=== PATIENT | female | born 1995 | race Caucasian/White ===

== ENCOUNTER 2017-08-11 14:45 | Emergency (ER) | payer OTHER ==
[~2017-08-11] VITALS: Ht 152.4 cm; Wt 54.4 kg
[~2017-08-11 14:45] MED LIST: HUMALOG100 UNIT/1 SQ; HUMALOG100 UNIT/2 SUB-Q; LANTUS SOL100 UNIT/1 SQ; LEVOTHROID88 MCG PO; LEVOTHYROXINE100 MCG PO; MACROBID 100 M100 MG PO; NORCO 5-325 TA1 EACH PO; NOVOLOG FL100 UNIT/1; NOVOLOG FL100 UNIT/1 SQ
[2017-08-11] MEDS ORDERED: NOVOLOG FL100 UNIT/1 SUB-Q (15:08)
[2017-08-11] MEDS ORDERED: PROMETHAZINE HC25 M1 PO (19:00)
== END 2017-08-11 19:21 | disposition home or self-care (01) ==
LOC: ED 14:45
DX: E10.10 Type 1 diabetes mellitus with ketoacidosis without coma (principal); E03.9 Hypothyroidism, unspecified; Z87.442 Personal history of urinary calculi; Z88.8 Allergy status to other drugs, medicaments and biological substances; Z79.4 Long term (current) use of insulin; Z79.899 Other long term (current) drug therapy
CPT/HCPCS: 80053; 81001; 82010; 82800; 84703; 85025; 96361; 96372; 96374; 99283; J2550; J7030

== ENCOUNTER 2017-08-12 16:23 | Inpatient (IN) | payer OTHER ==
[~2017-08-12] VITALS: Ht 152.4 cm; Wt 55.6 kg
[~2017-08-12 16:23] MED LIST changes: +NOVOLOG FL100 UNIT/1 SUB-Q; +PROMETHAZINE HC25 M1 PO
[2017-08-13] MEDS ORDERED: LEVEMIR100 UNIT/1 SUB-Q (10:39)
== END 2017-08-13 11:30 | disposition home or self-care (01) | DRG 639 ==
LOC: ED 16:23 → CCU 19:55
PROVIDERS: ADMIT Internal Medicine
DX: E10.10 Type 1 diabetes mellitus with ketoacidosis without coma (principal); Z79.4 Long term (current) use of insulin; L51.9 Erythema multiforme, unspecified; E03.9 Hypothyroidism, unspecified
CPT/HCPCS: 36415; 80048; 80053; 81001; 82010; 82800; 83036; 84703; 85025; 86694; 86695; 86696; 94667; 96361; 96374; 96375; 99285; J1200; J1650; J2765; J7030

== ENCOUNTER 2017-09-26 16:48 | Emergency (ER) | payer OTHER ==
[~2017-09-26] VITALS: Ht 152.4 cm; Wt 55.6 kg
[~2017-09-26 16:48] MED LIST changes: +LEVEMIR100 UNIT/1 SUB-Q
== END 2017-09-26 19:04 | disposition home or self-care (01) ==
LOC: ED 16:48
DX: S99.911A Unspecified injury of right ankle, initial encounter (principal); X50.9XXA Other and unspecified overexertion or strenuous movements or postures, initial encounter

== ENCOUNTER 2017-11-30 13:13 | Emergency (ER) | payer OTHER ==
[~2017-11-30] VITALS: Ht 152.4 cm; Wt 55.6 kg
[2017-11-30] MEDS ORDERED: NORCO 5-325 TA1 EACH PO (16:06)
== END 2017-11-30 16:44 | disposition home or self-care (01) ==
LOC: ED 13:13
DX: S20.211A Contusion of right front wall of thorax, initial encounter (principal); S20.221A Contusion of right back wall of thorax, initial encounter; E10.9 Type 1 diabetes mellitus without complications; Z87.442 Personal history of urinary calculi; Z88.8 Allergy status to other drugs, medicaments and biological substances; Z79.4 Long term (current) use of insulin; Z79.899 Other long term (current) drug therapy; X58.XXXA Exposure to other specified factors, initial encounter
CPT/HCPCS: 36415; 71045; 72128; 80053; 81001; 84703; 85025; 96372; 96374; 99284; G0480; J1170; J7030

== ENCOUNTER 2017-12-03 22:10 | Emergency (ER) | payer OTHER ==
[~2017-12-03] VITALS: Ht 152.4 cm; Wt 55.6 kg
[2017-12-03] MEDS ORDERED: PERCOCET 5-3251 EACH PO (23:15)
== END 2017-12-03 23:29 | disposition home or self-care (01) ==
LOC: ED 22:10
DX: S20.229A Contusion of unspecified back wall of thorax, initial encounter (principal); E10.9 Type 1 diabetes mellitus without complications; Z88.8 Allergy status to other drugs, medicaments and biological substances; Z79.899 Other long term (current) drug therapy; V86.99XA Unspecified occupant of other special all-terrain or other off-road motor vehicle injured in nontraffic accident, initial encounter; Y92.89 Other specified places as the place of occurrence of the external cause; Y99.0 Civilian activity done for income or pay
CPT/HCPCS: 99283

== ENCOUNTER 2017-12-12 14:55 | Emergency (ER) | payer OTHER ==
[~2017-12-12] VITALS: Ht 152.4 cm; Wt 55.6 kg
[~2017-12-12 14:55] MED LIST changes: +PERCOCET 5-3251 EACH PO
[2017-12-12] MEDS ORDERED: KEFLEX500 MG PO (15:15)
[2017-12-12] MEDS ORDERED: OMEPRAZOLE20 MG PO (15:15)
== END 2017-12-12 16:20 | disposition home or self-care (01) ==
LOC: ED 14:55
DX: S20.211A Contusion of right front wall of thorax, initial encounter (principal); E10.9 Type 1 diabetes mellitus without complications; W23.0XXA Caught, crushed, jammed, or pinched between moving objects, initial encounter; Y92.89 Other specified places as the place of occurrence of the external cause
CPT/HCPCS: 99282

== ENCOUNTER 2018-05-28 13:16 | Observation (INO) | payer OTHER ==
[~2018-05-28] VITALS: Ht 152.4 cm; Wt 56.2 kg
[~2018-05-28 13:16] MED LIST changes: +KEFLEX500 MG PO; +OMEPRAZOLE20 MG PO
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
[2018-05-30] MEDS ORDERED: MIRALAX17 GM PO (11:04)
[2018-05-30] MEDS ORDERED: SENNA-TIME S T1 EACH PO (11:05)
== END 2018-05-30 13:00 | disposition home or self-care (01) ==
LOC: ED 13:16 → CCU 13:17
PROVIDERS: ADMIT Internal Medicine
DX: E10.10 Type 1 diabetes mellitus with ketoacidosis without coma (principal); E03.9 Hypothyroidism, unspecified; F17.200 Nicotine dependence, unspecified, uncomplicated; E87.6 Hypokalemia; E83.39 Other disorders of phosphorus metabolism; E83.42 Hypomagnesemia; Z79.899 Other long term (current) drug therapy; Z88.8 Allergy status to other drugs, medicaments and biological substances; Z87.442 Personal history of urinary calculi; Z91.14 Patient's other noncompliance with medication regimen
CPT/HCPCS: 36415; 36600; 80048; 80053; 81001; 82010; 82803; 83735; 84100; 84703; 85025; 96361; 96365; 96366; 96374; 96375; 99284; G0378; J1815; J2550; J3475; J7030; J7070

== ENCOUNTER 2018-10-22 13:26 | Observation (INO) | payer OTHER ==
[~2018-10-22] VITALS: Ht 152.4 cm; Wt 56.9 kg
[~2018-10-22 13:26] MED LIST changes: +GLUCAGON EMERGEN1 MG SUB-Q; -LANTUS SOL100 UNIT/1 SQ; +MIRALAX17 GM PO; -NOVOLOG FL100 UNIT/1 SUB-Q; +POTASSIUM CHLO20 ME1 PO; +SENNA-TIME S T1 EACH PO
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
[2018-10-22] MEDS ORDERED: NOVOLOG100 UNIT/1 SUB-Q (13:38)
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
--- NOTE | 2018-10-22 22:40 | NUR ---
PT'S FAMILY MEMBER BROUGHT IN JERKY FOR PT, WHICH PT WAS EATING WHEN I ENTERED ROOM. PT WAS AWARE THAT HER DIET WAS CLEAR LIQUIDS ONLY, HOWEVER I INFORMED HER AGAIN THAT SHE CANNOT HAVE THE JERKY AT THIS TIME. WILL CONTINUE TO MONITOR FOR PT COMPLIANCE.
--- NOTE | 2018-10-22 23:16 | NUR ---
CB, TITRATED INSULIN DRIP TO 3.4 UNITS/HR, VERIFIED WITH LAZARO FONTANA.
--- NOTE | 2018-10-23 00:10 | NUR ---
CB, TITRATED DRIP TO 2.8 UNITS/HR, VERIFIED WITH LAZARO FONTANA. ASSESSMENT COMPLETED, NO CHANGES FROM PREVIOUS ASSESSMENT. PT RESTING IN BED, REQUESTS MORE SUGAR-FREE JELLO, PROVIDED. NO OTHER REQUESTS AT THIS TIME, CALL LIGHT REMAINS WITHIN REACH.
--- NOTE | 2018-10-23 01:00 | NUR ---
CB, NO TITRATION TO INSULIN DRIP REQUIRED AT THIS TIME.
--- NOTE | 2018-10-23 02:00 | NUR ---
CB, NO TITRATION OF INSULIN DRIP REQUIRED AT THIS TIME. PER DR. KWOK, IVF CHANGED TO D5 1/2NS WITH 20MEQ K @ 250ML/HR. LAB IN TO DRAW 0200 BLOODWORK AT THIS TIME.
--- NOTE | 2018-10-23 02:39 | NUR ---
CALLED DR. KWOK TO UPDATE HIM OF 0200 LAB RESULTS. RECEIVED ORDERS FOR 20MEQ PO POTASSIUM ONCE. NO OTHER CHANGES MADE TO ORDERS.
--- NOTE | 2018-10-23 03:07 | NUR ---
CB, TITRATED INSULIN DRIP TO 5.1 UNITS/HR, VERIFIED WITH LAZARO FONTANA.
--- NOTE | 2018-10-23 04:02 | NUR ---
CB, TITRATED INSULIN DRIP TO 8.4 UNITS/HR, VERIFIED WITH LAZARO FONTANA. PT SLEEPING, NO APPARENT DISTRESS. RESPIRATIONS EVEN AND UNLABORED, RR:15, SPO2:99% ON RA, HR:67. WILL ALLOW FOR REST AND CONTINUE TO MONITOR.
--- NOTE | 2018-10-23 05:03 | NUR ---
CB, TITRATED INSLIN DRIP TO 6.8 UNITS/HR, VERIFIED WITH LAZARO FONTANA. PT CONTINUES TO SLEEP, NO APPARENT DISTRESS.
--- NOTE | 2018-10-23 06:00 | NUR ---
CB, INSULIN DRIP TITIRATED TO 4.8 UNITS/HR, VERIFIED WITH LAZARO FONTANA.
--- NOTE | 2018-10-23 07:03 | NUR ---
CB, INSULIN DRIP TITRATED TO 3 UNITS/HR, VERIFIED BY LAZARO FONTANA.
--- NOTE | 2018-10-23 09:20 | NUR ---
DR. KWOK HERE TO SEE PATIENT. CHIP RECIEVED. IVF DECREASED TO 200 ML/HR. BREAKFAST ORDERED. PATIENT C/O LOWER ABD PAIN RATED 6/10.
--- NOTE | 2018-10-23 09:30 | NUR ---
UP TO BR TO VOID 900 ML OF BLOOD TINGED URINE. IS STABE ON FEET. DENIES PAINFUL URINATION. HAS FLAT AFFECT.
--- NOTE | 2018-10-23 09:50 | NUR ---
LANTUS INSULIN 30 UNITS GIVEN PER ORDERS.
--- NOTE | 2018-10-23 11:06 | NUR ---
INSULIN DRIP DC'D PER ORDERS.
--- NOTE | 2018-10-23 12:00 | NUR ---
ASSESSMENT DONE. CONTINUE WITH MILD ABD PAIN. AFFECT REMAINS FLAT. ACCUCHECK-233. NOVOLOG 5 UNITS SQ GIVEN.
--- NOTE | 2018-10-23 12:04 | NUR ---
PT ASLEEP, COULD NOT WAKE HER. FRIEND AT BS WILL COME BACK LATER
--- NOTE | 2018-10-23 12:30 | NUR ---
DR. KWOK HERE, ORDERS RECIEVED TO DC IVF.
[2018-10-23] MEDS ORDERED: LANTUS SOL100 UNIT/1 SQ (12:44)
[2018-10-23] MEDS ORDERED: NOVOLOG FL100 UNIT/1 SUB-Q (12:45)
[2018-10-23] MEDS ORDERED: SYNTHROID112 MCG PO (12:47)
[2018-10-23] MEDS ORDERED: GLUCAGON EMERGEN1 MG INJ (12:48)
--- NOTE | 2018-10-23 12:53 | NUR ---
MED REC COMPLETE
--- NOTE | 2018-10-23 13:10 | NUR ---
SITTING UP IN BED TO EAT LUNCH, WILL COUNT CARBS EAT FOR LUNCH THEN WILL GIVE INSULIN ODERED.
--- NOTE | 2018-10-23 14:45 | NUR ---
IS AWAKE, UP TO BR TO VOID. IS MORE TALKATVE AT THIS TIME. PATIENT STATES SHE STILL FEELS BAD, STATES SHE HAS STABBING LIKE PAINS IN LOWER ABD AT TIMES. C/O DIZZINESS WHEN SITS UP BUT STATES SHE HAS NOT BEEN DIZZY WHEN WALKING TO THE BATHROOM. ALSO SAID SHE FEELS LIKE SHE IS GOING BACK INTO DKA.
--- NOTE | 2018-10-23 15:10 | NUR ---
DR. KWOK UPDATED ON PATIENT STATUS, DR. KWOK IS AWARE OF HOW PATIENT IS FEELING. PATIENT WILL HAVE PELVIC US AND TRANSVAGINAL US TODAY. PATIENT IS AWARE.
--- NOTE | 2018-10-23 17:54 | NUR ---
PT WALKED TO FLOOR WITH LAZARO PRECIADO. FRIEND WITH HER. FLAT AFFECT. TUCKED IN BED WITH TV REMOTE. VS STABLE. DINNER ORDERED, WILL OBTAIN CARB COUNT WHEN ARRIVES. PT DENIES FURTHER CONCERNS.
--- NOTE | 2018-10-23 19:00 | NUR ---
CHARGE ROUNDING DONE AT BEDSIDE. PATIENT RESTING IN BED WATCHING HER TV. DENIES ANY NEEDS AT THIS TIME.
--- NOTE | 2018-10-23 19:27 | NUR ---
IN ROOM FOR REPORT, PT IS AWAKE IN BED AND DENIES NEEDS AT THIS TIME. CALL LIGHT IS CLOSE.
--- NOTE | 2018-10-23 19:59 | EKG ---
[facility] [address] [facility] [address] [place] [address] Signed Normal sinus rhythm Normal ECG Early repolarization No previous ECGs available Confirmed by MICAH KWOK MD ([id number]) on 10/23/2018 7:59:00 PM Electronically Signed By: MICAH KWOK MD 10/23/181958 PATIENT NAME: TENA KERN Electrocardiogram DATE OF : [birth year] PHYSICIAN: MICAH KWOK MD REPORT #: [id number] REPORT IS CONFIDENTIAL AND NOT TO BE RELEASED WITHOUT AUTHORIZATION
--- NOTE | 2018-10-23 20:00 | NUR ---
SPOKE WITH DR KWOK ABOUT PT'S INSULIN ORDERS. IT APPEARS AT 1700 PT WAS TO HAVE BOTH S/S INSULIN AND INSULIN PER DINNERS CARB COUNT. HE IS AWARE THAT SHE WAS GIVEN THE CARB COUNT INSULIN AND HE SAID IT WAS OK TO WAIT ON THE S/S INSULIN UNTIL HS. WILL RECHECK BG AT THAT TIME.
--- NOTE | 2018-10-23 22:48 | NUR ---
V/S AND I&O DONE AND CHARTED. SUGAR FREE PUDDING, LOW SODIUM CHICKEN NOODLE SOUP GIVEN PER PATIENT'S REQUEST. PRIMARY NURSE NOTIFIED.
--- NOTE | 2018-10-23 22:55 | NUR ---
IN ROOM TO ASSESS PT AND ADMINISTER MEDICATIONS. BROUGHT PT DIET COLA. BS IS 298 AT THIS TIME AND THERE IS A EMPTY SOUP BOWL AND CRACKER WRAPPERS NEXT TO HER AT THE BEDSIDE. SHE REPORTS SHARP CONTANT ABD PAIN AT 7/10. OFFERED TYLENOL BUT SHE DENIED THE NEED. ADVISED PT TO LET ME KNOW IF SHE NEEDS IT SHE WILL NEED TO TRY IT FIRST BEFORE CALLING THE DR TO ASK FOR ANYTHING STRONGER. PT DENIES NEEDS AT THIS TIME AND CALL LIGHT IS CLOSE.
--- NOTE | 2018-10-24 00:42 | NUR ---
PT IS AWAKE IN BED ON HER PHONE, SHE DENIES NEEDS. CALL LIGHT IS CLOSE.
--- NOTE | 2018-10-24 01:40 | NUR ---
PT IS RESTING WITH EYES CLOSED, RESPIRATIONS ARE EVEN AND NONLABORED. CALL LIGHT IS CLOSE.
--- NOTE | 2018-10-24 03:28 | NUR ---
ADMINISTERED 2 UNTIS OF HUMALOG FOR BG OF 175. PT REPORTS ABD PAIN AT 6/10 BUT AGAIN DENIES NEED TO TYLENOL. CALL LIGHT IS CLOSE AND SHE DENIES NEEDS.
--- NOTE | 2018-10-24 05:08 | NUR ---
PT IS RESTING WITH EYES CLOSED, RESPIRATIONS ARE EVEN AND NONLABORED. CALL LIGHT IS CLOSE.
--- NOTE | 2018-10-24 05:49 | NUR ---
PT SEEMED TO SLEEP WELL THE LAST HALF OF THE NIGHT. SHE IS INDEPENDENT IN THE ROOM. HER IV IS SL. SHE RATES ABD PAIN AT 6/10 CONSISTENTLY BUT DENIES THE NEED FOR TYLENOL. SHE ALSO DENIES N/V. SHE WOULD LIKE TO TALK TO CASE MANAGEMENT TODAY ABOUT INSURANCE.
--- NOTE | 2018-10-24 06:01 | NUR ---
IN ROOM TO ADMINISTER THYROID MEDICATION. PT WOULD LIKE A WARM BLANKET. SHE DENIES FURTHER NEEDS.
--- NOTE | 2018-10-24 09:02 | NUR ---
PTS AUNT CALLED TO GET AN UPDATE ON HER AND LAZARO THORNE CHECKED WITH THE PT IF IT WAS FINE AND THE PT. SAID THAT SHE WANTS NO INFORMATION GIVEN TO HER, I TOLD THE AUNT AND SHE WAS NOT PLEASED. NO INFORMATION WAS GIVEN
--- NOTE | 2018-10-24 09:15 | NUR ---
Pt resting supine in bed, pt ate all of bagel and approx 50% of scrambled egg along with orange slice. Pt given 5 units reg insulin for approx 50 carbs eaten along with sliding scale insulin of 2 units for bs of 173. Also 30 units of lantus administered as ordered. Assessment completed. Pt denies nausea, vomiting, pain and also denies having any needs/concerns. Call light and h20 in reach. Pt watching tv and appears comfortable.
--- NOTE | 2018-10-24 09:25 | NUR ---
PATIENT RESTING IN BED, CALL LIGHT IN REACH. WASH CLOTH AND ORAL CARE SET UP FOR PATIENT IN BATHROOM. NO OTHER NEEDS AT THIS TIME.
--- NOTE | 2018-10-24 10:49 | NUR ---
PATIENT RESTING IN BED, WATCHING TV, NO OTHER NEEDS AT THIS TIME.
[2018-10-24] MEDS ORDERED: NICORETTE4 M2 BUCCAL (11:44)
[2018-10-24] MEDS ORDERED: NOVOLOG FL100 UNIT/1 SUB-Q (11:48)
[2018-10-24] MEDS ORDERED: LANTUS SOL100 UNIT/1 SQ (11:49)
[2018-10-24] MEDS ORDERED: INSULIN PEN NE1 EAC1 MISC (11:50)
[2018-10-24] MEDS ORDERED: SYNTHROID112 MCG PO (11:50)
--- NOTE | 2018-10-24 12:42 | NUR ---
PT RESTING IN BED, ALERT AND ORIENTED. PT WAS VERY QUIET TODAY, SAID SHE WAS DOING BETTER. EXTENDED A BLESSING, WILL FOLLOW NEEDED
--- NOTE | 2018-10-24 13:08 | NUR ---
TALKED WITH PT REGARDING HER INSURANCE AFTER I TALKED WITH JATINDER IN PT ACCOUNTS. JATINDER STATES THAT SHE SHOULD GET SOME FORMS IN THE MAIL AND SHE WILL NEED TO FILL THAT OUT AND RETURN IT TO THE STATE, THEN SHE SHOULD ROLL OVER TO [facility]. PT STATED UNDERSTANDING OF THIS.
== END 2018-10-24 13:24 | disposition home or self-care (01) ==
LOC: ED 13:26 → CCU 13:28 → MS 10-23 17:40
PROVIDERS: ADMIT Internal Medicine
DX: E10.10 Type 1 diabetes mellitus with ketoacidosis without coma (principal); F17.200 Nicotine dependence, unspecified, uncomplicated; E03.9 Hypothyroidism, unspecified; Z79.4 Long term (current) use of insulin; Z79.899 Other long term (current) drug therapy; Z88.8 Allergy status to other drugs, medicaments and biological substances
CPT/HCPCS: 36415; 76830; 76856; 80048; 80053; 81001; 82010; 82800; 82803; 83690; 84702; 85025; 86900; 86901; 93005; 93010; 96361; 96372; 96374; 96375; 99285-25; 99406; G0378; J1200; J1650; J1815; J2765; J7030

== ENCOUNTER 2019-04-14 01:31 | Emergency (ER) | payer OTHER ==
[~2019-04-14] VITALS: Ht 152.4 cm; Wt 56.7 kg
[~2019-04-14 01:31] MED LIST changes: +GLUCAGON EMERGEN1 MG INJ; +INSULIN PEN NE1 EAC1 MISC; +LANTUS SOL100 UNIT/1 SQ; +NICORETTE4 M2 BUCCAL; +NOVOLOG FL100 UNIT/1 SUB-Q; +NOVOLOG100 UNIT/1 SUB-Q; +SYNTHROID112 MCG PO
--- OUTSIDE RECORDS SUMMARY | 2019-04-14 01:34 | XMS ---
PreManage Notification: TENA KERN Security Lathe Winder Events No recent Security Events currently on file CRITERIA MET - [facility] - Has Care Guidelines - [facility] - 2 Visits in 30 Days CARE PROVIDERS Teo Albarado [facility] 10/23/2018-Current PHONE: Unknown DARSHAN BACH Internal Medicine 06/26/2018-Current PHONE: Unknown Darshan Bach Primary Care Current PHONE: [phone] Lexy has no Care Guidelines for this patient. Care History Medical/Surgical 07/27/2018 [facility] - PATIENT HAS NO SHOWED TO APTS ON 06/01, 07/13, AND LEFT WITH OUT BEING SEEN ON 07/14 AT [facility]. PATIENT HAS A SCHEDULED APT WITH DR BACH ON 09/06/18. - PATIENT HAS AN CYBER SYSTEMS ADMINISTRATOR IN [place] DR ALTAMIRANO [phone]. PATIENT WAS LAST SEEN BY HER CYBER SYSTEMS ADMINISTRATOR ON 12/11/17 AND NO SHOWED TO HER LAST APT IN MARCH OF 2018 AND HAS NOT FOLLOWED UP SINCE. - CHW HAS REFERRED PATIENT TO [facility] DUE TO HIGH RISK FOR READMISSION. 06/26/2018 [facility] - Patient is currently established with [facility]. If patient is seen in the ED during business hours. Please contact CHWs at [facility]. Care Recommendation: This patient has had 5 [...] care. E.D. VISIT COUNT (12 MO.) [address] Kylah Jaffe 6 [facility]. TOTAL 7 NOTE: Visits indicate total known visits. ED/UCC VISIT TRACKING (12 MO.) 04/14/2019 01:32 [facility] [place] TYPE: Emergency COMPLAINT: - MULTIPLE COMPLAINTS 04/12/2019 14:38 [place] [place] TYPE: Emergency COMPLAINT: - CAN'T SEE WELL 11/08/2018 19:13 [facility] TYPE: Emergency DIAGNOSES: - High Blood Sugar (Symptomatic) - SOB,cp,vomiting - Type 1 diabetes mellitus with ketoacidosis without coma - Emesis - Chest Pain 10/22/2018 13:27 [facility] [place] TYPE: Emergency COMPLAINT: - VAGINAL BLEEDING 07/29/2018 22:59 [facility] [place] TYPE: Emergency COMPLAINT: - SOB 06/25/2018 13:22 [facility] [place] TYPE: Emergency COMPLAINT: - BLOOD SUGAR PROBLEM 05/28/2018 13:16 [facility] [place] TYPE: Emergency COMPLAINT: - VOMITING INPATIENT VISIT TRACKING (12 MO.) 11/08/2018 19:13 [facility] TYPE: Intensive Care DIAGNOSES: - Acetonuria - Dehydration - Glycosuria - Other fatigue - Hyperglycemia, unspecified - Hypo-osmolality and hyponatremia - Acute kidney failure, unspecified - Type 1 diabetes mellitus with ketoacidosis without coma - Other malaise - Nausea with vomiting, unspecified 10/22/2018 13:28 [facility] [place] TYPE: Observation COMPLAINT: - DKA DIAGNOSES: - intermission coordinator (current) use of insulin - Nicotine dependence, unspecified, uncomplicated - Type 1 diabetes mellitus with ketoacidosis without coma - Hypothyroidism, unspecified - Other half-way (current) drug therapy - Allergy status to other drugs, medicaments and biological substances status 07/29/2018 23:00 [facility] [place] TYPE: Observation COMPLAINT: - DIABETIC KETOACIDOSIS DIAGNOSES: - Other half-way (current) drug therapy - Personal history of urinary calculi - Allergy status to other drugs, medicaments and biological substances status - Hypokalemia - Type 1 diabetes mellitus with ketoacidosis without coma - Hypothyroidism, unspecified 06/25/2018 13:23 [facility] [place] TYPE: Observation COMPLAINT: - DKA DIAGNOSES: - Personal history of urinary calculi - Other disorders of phosphorus metabolism - Patient's noncompliance with other medical treatment and regimen - Allergy status to other drugs, medicaments and biological substances status - Personal history of nicotine dependence - Other terminal computer operator (current) drug therapy - Type 1 diabetes mellitus with ketoacidosis without coma - Dehydration - Hypokalemia - intermission coordinator (current) use of insulin - Hyperglycemia, unspecified - Hypomagnesemia - Hypothyroidism, unspecified 05/28/2018 13:17 [facility] [place] TYPE: Observation COMPLAINT: - DKA DIAGNOSES: - Hypokalemia - Other disorders of phosphorus metabolism - Nicotine dependence, unspecified, uncomplicated - Type 1 diabetes mellitus with ketoacidosis without coma - Nausea with vomiting, unspecified - Personal history of urinary calculi - Patient's other noncompliance with medication regimen - Allergy status to other drugs, medicaments and biological substances status - Hypomagnesemia - Other half-way (current) drug therapy - Hypothyroidism, unspecified [email or web address]
[2019-04-14] MEDS ORDERED: TRAMADOL HCL50 MG PO (03:36)
== END 2019-04-14 03:55 | disposition home or self-care (01) ==
LOC: ED 01:31
DX: R51 Headache (principal); M54.5 Low back pain; E10.9 Type 1 diabetes mellitus without complications; E05.90 Thyrotoxicosis, unspecified without thyrotoxic crisis or storm; Z87.442 Personal history of urinary calculi; Z88.8 Allergy status to other drugs, medicaments and biological substances
CPT/HCPCS: 80053; 84703; 85025; 96361; 96374; 96375; 99284-25; J1200; J1885; J2765; J7030

== ENCOUNTER 2019-04-18 15:45 | Observation (INO) | payer OTHER ==
[~2019-04-18] VITALS: Ht 152.4 cm; Wt 57.2 kg
[~2019-04-18 15:45] MED LIST changes: +TRAMADOL HCL50 MG PO
--- OUTSIDE RECORDS SUMMARY | 2019-04-18 15:48 | XMS ---
PreManage Notification: TENA KERN Security Electric Crane Operator Events No recent Security Events currently on file CRITERIA MET - [facility] - Has Care Guidelines - [facility] - 2 Visits in 30 Days CARE PROVIDERS Teo Albarado [facility] 10/23/2018-Current PHONE: Unknown DARSHAN BACH Internal Medicine 06/26/2018-Current PHONE: Unknown Darshan Bach Primary Care Current PHONE: [phone] Lexy has no Care Guidelines for this patient. Care History Medical/Surgical 07/27/[address] [facility] - PATIENT HAS NO SHOWED TO APTS ON 06/01, 07/13, AND LEFT WITH OUT BEING SEEN ON 07/14 AT [facility]. PATIENT HAS A SCHEDULED APT WITH DR BACH ON 09/06/18. - PATIENT HAS AN HEATING UNIT INSTALLER IN [place] [address] ALTAMIRANO [phone]. PATIENT WAS LAST SEEN BY HER HEATING UNIT INSTALLER ON 12/11/17 AND NO SHOWED TO HER LAST APT IN MARCH OF 2018 AND HAS NOT FOLLOWED UP SINCE. - CHW HAS REFERRED PATIENT TO [facility] AND TO [facility] CASE MANAGEMENT DUE TO HIGH RISK FOR READMISSION. 06/26/2018 [facility] - Patient is currently established with [facility]. If patient is seen in the ED during business hours. Please contact CHWs at [facility]. Care Recommendation: This patient has had 5 [...] care. E.D. VISIT COUNT (12 MO.) [address] Kylah Jaffe 7 [facility]. TOTAL 8 NOTE: Visits indicate total known visits. ED/UCC VISIT TRACKING (12 MO.) 04/18/2019 15:46 [facility] [place] TYPE: Emergency COMPLAINT: - HEADACHE 04/14/2019 01:32 [facility] [place] TYPE: Emergency COMPLAINT: - MULTIPLE COMPLAINTS DIAGNOSES: - Low back pain - Headache - Thyrotoxicosis, unspecified without thyrotoxic crisis or storm - Allergy status to other drugs, medicaments and biological substances status - OTHER SPECIFIED DISORDERS OF EYE AND ADNEXA - Type 1 diabetes mellitus without complications - Personal history of urinary calculi - Headache 04/12/2019 14:38 [facility] [place] TYPE: Emergency COMPLAINT: - CAN'T SEE WELL DIAGNOSES: - Type 1 diabetes mellitus without complications - Personal history of urinary calculi - OTHER SPECIFIED DISORDERS OF EYE AND ADNEXA - Other jail (current) drug therapy - Allergy status to other drugs, medicaments and biological substances status - Unspecified retinal disorder - Hypothyroidism, unspecified 11/08/2018 19:13 [facility] TYPE: Emergency DIAGNOSES: - High Blood [...] INPATIENT VISIT TRACKING (12 MO.) 11/08/[facility] [facility] DIAGNOSES: - Acetonuria - Dehydration - Glycosuria - Other fatigue - Hyperglycemia, unspecified - Hypo-osmolality and hyponatremia - Acute kidney failure, unspecified - Type 1 diabetes mellitus with ketoacidosis without coma - Other malaise - Nausea with vomiting, unspecified 10/22/2018 13:28 [facility] [place] TYPE: Observation COMPLAINT: - DKA DIAGNOSES: - buttermaker continuous churn (current) use of insulin - Nicotine dependence, unspecified, uncomplicated - Type 1 diabetes mellitus with ketoacidosis without coma - Hypothyroidism, unspecified - Other termite technician (current) drug therapy - Allergy status to other drugs, medicaments and biological substances status 07/29/2018 23:00 [facility] [place] TYPE: Observation COMPLAINT: - DIABETIC KETOACIDOSIS DIAGNOSES: - Other jail (current) drug therapy - Personal history of [...] Personal history of nicotine dependence - Other jail (current) drug therapy - Type 1 diabetes mellitus with ketoacidosis without coma - Dehydration - Hypokalemia - half-way (current) use of insulin - Hyperglycemia, unspecified [...] biological substances status - Hypomagnesemia - Other termite technician (current) drug therapy - Hypothyroidism, unspecified [email or web address]
--- NOTE | 2019-04-18 19:40 | NUR ---
RECEIVED TELEPHONE REPORT FROM YONG ED RN. ALL QUESTIONS ANSWERED. AWAITING PT'S ARRIVAL.
--- NOTE | 2019-04-18 20:00 | NUR ---
PT ARRIVED FROM THE ED VIA STRETCHER, AMBULATED SELF FROM STRETCHER TO BED. VS COLLECTED AND STABLE. PT DROWSY, BUT A/OX4, AWAKENS FOR ASSESSMENT. ACCU CHECK RESULT OF 282, AWAITING BENCH ASSEMBLER BATTERY TO MIX AND PREPARE HUMULIN R. ASSESSMENT COMPLETE, PREVIOUS LP SITE NOTED. NO SIGNS OF IRRITATION OR INFLAMMATION NOTED. PT RESTING SUPINE IN BED, RATES PAIN 5/10, DENIES NEED FOR PAIN MEDICATION AT THIS TIME. ICE WATER AT BEDSIDE, NO FURTHER NEEDS. PT ORIENTED TO ROOM. CALL LIGHT IN REACH. BOYFRIEND IN ROOM. SPOKE TO DR BROWNE REGARDING DIET, PER MD BLUM FOR PT TO HAVE 60 G CARB DIET.
--- NOTE | 2019-04-18 21:00 | NUR ---
ACCU CHECK RESULT OF 302. LR BOLUS INFUSING PER MD ORDERS, IV SITE WNL. PT DENIES PAIN AT SITE. PER TITRATION PROTOCOL, INSULIN TITRATED TO 7.5 UNITS/HR, VERIFIED WITH SECOND RN JASON. PT DENIES NEEDS, CALL LIGHT IN REACH.
--- NOTE | 2019-04-18 21:40 | NUR ---
HUMULIN R HUNG AND INFUSING VIA Y SITE WITH LR BOLUS. PER MD ILDA ORDERS AND TITRATION ORDERS, INSULIN INFUSING AT 4.2 UNITS/HR, VERIFIED BY TRUSS DRIVER HELPERLAZARO GOMEZ.NO FURTHER NEEDS AT THIS TIME. CALL LIGHT IN REACH.
--- NOTE | 2019-04-18 22:03 | NUR ---
ACCU CHECK RESULT OF 245. PER INSULIN TITRATION ORDERS, HUMULIN R TITRATED DOWN TO 5.1 UNITS/HR. VERIFIED BY SECOND RN JASON. PT DENIES PAIN AT IV SITE. DENIES FURTHER NEEDS, CALL LIGHT IN REACH. BOYFRIEND IN ROOM.
--- NOTE | 2019-04-18 23:00 | NUR ---
ACCUCHECK RESULT OF 195, PER TITRATION ORDERS, INSULIN INFUSING AT 4.2 UNITS/HR. VERIFIED BY SECOND RN JASON.
--- NOTE | 2019-04-18 23:10 | NUR ---
AT 2300 LAB CALLED WITH A CRITICAL CO2 VALUE OF 9. WAITED UNTIL 2310 FOR OTHER LAB RESULTS AND THEN CALLED MD BROWNE. ORDERS FOR A LACTIC ACID WAS GIVEN AND HE WILL CHANGE THE IV FLUID ORDERS. BG AT 2300 WAS 195. PT IS ALSO DUE TO VOID. ORDER WAS GIVEN THAT IF BLADDER SCAN SHOWS >400ML AND PT IS UNABLE TO VOID, TO INSERT A SMIHT. WILL CONTINUE TO MONITOR.
--- NOTE | 2019-04-19 00:10 | NUR ---
SODIUM BICARBONATE INFUSING PER MD ORDERS, IV SITE WNL. PT DENIES PAIN AT SITE. ACCU CHECK RESULT OF 144, PER TITRATION ORDERS, INSULIN INFUSING AT 2.7 UNITS/HR. VERIFIED BY SECOND RN JASON. ASSESSMENT COMPLETE, NO NEW CHANGES. PT A/OX4, REPORTS 6/10 PAIN IN BACK, PRN TYLENOL GIVEN. PT REPORTS HUNGER AND REQUESTING VEGGIE TRAY, ELECTRICIAN RADIO NOTIFIED. PT DENIES ADDITIONAL NEEDS, CALL LIGHT IN REACH.
--- NOTE | 2019-04-19 01:15 | NUR ---
ACCU CHECK RESULT OF 140, PER INSULIN TITRATION PROTOCAL, INSULIN INFUSING AT 1.6 UNITS/HR. IV SITE WNL. PT DENIES NEEDS AT THIS TIME. AWAITING LAB TO COMPLETE 0100 SCHEDULED LAB DRAW.
--- NOTE | 2019-04-19 02:15 | NUR ---
ACCU CHECK RESULT OF 154, INSULIN INFUSION TITRATED PER MD ORDERS, VERIFIED WITH SECOND RN JASON. LAB UNABLE TO COMPLETE LAB DRAW AFTER MULTIPLE ATTEMPTS, WORKFORCE CONSULTANT NOTIFED. THIS RN UNABLE TO DRAW BACK BLOOD AT IV SITE. LAB FINALLY ABLE TO COLLECT BLOOD DRAW AT THIS TIME. PRN BENADRYL GIVEN AROUND 0200 FOR PAIN. PT PERSISTING TO GO HOME AND STATING, "WHEN CAN I LEAVE, I WANT TO GO HOME". EDUCATION PROVIDED REGARDING HOSPITALIZATION. STATED ABOVE, PRN BENADRYL OFFERED FOR PAIN, PT AGREES TO STAY AT THIS TIME. NO FURTHER NEEDS, CALL LIGHT IN REACH.
--- NOTE | 2019-04-19 03:30 | NUR ---
LAB NOTIEFIED US THAT THERE WAS AN ERROR IN THE LAB EQUIPMENT. THE 0100 BMP HAS TO BE RE-RUN.
--- NOTE | 2019-04-19 04:32 | NUR ---
MAXILLOFACIAL PROSTHODONTIST IAN CALLED WITH A CRITICAL LAB VALUE FOR CO2 OF 9 AT 0426. MD BROWNE WAS CALLED AND INFORMED. NO NEW ORDERS WERE RECEIVED.
--- NOTE | 2019-04-19 05:00 | NUR ---
PT RESTING IN BED, RR WNL. INSULIN INFUSING PER MD ORDERS AND TITRATIONS PARAMETERS. ICE WATER AND WARM PACK GIVEN PER PT REQUEST. NO FURTHER NEEDS, CALL LIGHT IN REACH.
--- NOTE | 2019-04-19 06:00 | NUR ---
ASSESSMENT COMPLETE, NO NEW CHANGES OR CONCERNS. PT A/OX4, VSS. VOIDED 250 MLS YELLOW URINE. PT REPORTS 5/10 PAIN, PRN TYLENOL AND WARM PACK PROVIDED. SCHEDULED THYROID PILL ADMINISTERED (SEE EMAR). INSULIN DRIP INFUSING PER TITRATION ORDERS, IV SITE WNL. PT DENIES PAIN AT SITE. PT UNSURE OF LAST BM, STATES "PROBABLY 3-4 DAYS AGO, I DON'T KNOW". BOWEL TONES ACTIVE, PT DENIES NAUSEA. NO FURTHER NEEDS, CALL LIGHT IN REACH.
--- NOTE | 2019-04-19 06:55 | NUR ---
INSULIN INFUSING PER TITRATION ORDERS, IV SITE WNL. CALL LIGHT IN REACH, NO DISTRESS NOTED.
[2019-04-19] MEDS ORDERED: LANTUS100 UNITS/ SUB-Q (10:07)
--- NOTE | 2019-04-19 12:15 | NUR ---
PT UP AMBULATING TO THE BATHROOM INDEPENDENTLY, THEN BACK TO BED TO EAT LUNCH. IV SITES ARE INTACT, NO REDNESS OR SWELLING NOTED, PT DENIES PAIN AT EITHER SITE. PT DOES NOT C/O NAUSEA, PAIN, OR SOB AT THIS TIME.
--- NOTE | 2019-04-19 12:58 | NUR ---
IV FLUIDS ON STANDBY AT THIS TIME PER .
--- NOTE | 2019-04-19 15:34 | NUR ---
PT IS AWAKE AND ALERT X4 LAYING IN BED WATCHING TV WITH SO. PT DENIES PAIN, NAUSEA, AND SOB AT THIS TIME. VITALS ARE WNL. IV SITES ARE INTACT, NO REDNESS OR SWELLING NOTED, PT DENIES PAIN AT EITHER SITE.
--- NOTE | 2019-04-19 16:26 | NUR ---
PT CBG IS 60, SHE IS NON-SYMPTOMATIC. PT STATES SHE IS ABLE/WILLING TO DRINK JUICE. VERIFYS THAT A CORRECTION WITH ORAL INTAKE OF JUICE IS ACCEPTABLE INSTEAD OF 1/2 AMP OF D50 AT THIS TIME. WILL RECHECK SUGAR IN 30 MIN.
--- NOTE | 2019-04-19 18:32 | NUR ---
PT IV SITES DC'D SHE IS GOING TO BE DC'D TO HOME IN THE NEXT HOUR. THE TIP OF BOTH CATHITERS WERE INTACT, PT NARESH WELL, NO REDNESS OR SWELLING NOTED.
[2019-04-19] MEDS ORDERED: LIDOCAINE1 EACH TD (18:33)
--- NOTE | 2019-04-19 19:06 | NUR ---
PT GIVEN ALL DC INFO. ALL QUESTIONS ANSWERED. IV SITES REMOVED EARLIER. PT AMBULATORY AND IS WALKING OUT OF THE CCU WITH PARTNER. PT IS ALERT AND ORIENTED X4, ABLE TO FUNCTION INDEPENDENTLY.
== END 2019-04-19 19:05 | disposition home or self-care (01) ==
LOC: ED 15:45 → CCU 19:31
PROVIDERS: ADMIT Student in an Organized Health Care Education/Training Program
DX: E10.10 Type 1 diabetes mellitus with ketoacidosis without coma (principal); E78.5 Hyperlipidemia, unspecified; E03.9 Hypothyroidism, unspecified; E86.0 Dehydration; R51 Headache; Z87.891 Personal history of nicotine dependence; Z87.442 Personal history of urinary calculi; Z88.8 Allergy status to other drugs, medicaments and biological substances; Z79.4 Long term (current) use of insulin; Z79.891 Long term (current) use of opiate analgesic; Z79.899 Other long term (current) drug therapy
CPT/HCPCS: 36415; 80048; 80053; 81001; 82010; 82800; 82803; 83605; 83690; 83735; 84100; 84703; 85025; 85651; 96361; 96374; 96375; 96376; 99284-25; G0378; G0480; J1100; J1200; J1630; J1815; J1885; J2765; J3475; J7030; J7042; J7070; J7120

== ENCOUNTER 2019-05-20 15:27 | Emergency (ER) | payer OTHER ==
[~2019-05-20] VITALS: Ht 152.4 cm; Wt 57.2 kg
[~2019-05-20 15:27] MED LIST changes: +LANTUS100 UNITS/ SUB-Q; +LIDOCAINE1 EACH TD
--- OUTSIDE RECORDS SUMMARY | 2019-05-20 15:30 | XMS ---
PreManage Notification: TENA KERN Security Inspector Integrated Circuits Events No recent Security Events currently on file CRITERIA MET - [facility] - Has Care Guidelines CARE PROVIDERS Teo Albarado [facility] 10/23/2018-Current PHONE: Unknown DARSHAN BACH Internal Medicine 06/26/2018-Current PHONE: Unknown Darshan Bach Primary Care Current PHONE: [phone] Lexy has no Care Guidelines for this patient. Care History Medical/Surgical 07/27/2018 [facility] - PATIENT HAS NO SHOWED TO APTS ON 06/01, 07/13, AND LEFT WITH OUT BEING SEEN ON 07/[address] [facility]. PATIENT HAS A SCHEDULED APT WITH DR BACH ON 09/06/18. - PATIENT HAS AN MAMMALOGY TEACHER IN [place] DR ALTAMIRANO [phone]. PATIENT WAS LAST SEEN BY HER MAMMALOGY TEACHER ON 12/11/17 AND NO SHOWED TO HER LAST APT IN MARCH OF 2018 AND HAS NOT FOLLOWED UP SINCE. - CHW HAS REFERRED PATIENT TO [facility] AND TO [facility] CASE MANAGEMENT DUE TO HIGH RISK FOR READMISSION. 06/26/2018 [facility] - Patient is currently established with [facility]. If patient is seen in the ED during business hours. Please contact CHWs at [facility]. Care Recommendation: This patient has had [...] (12 MO.) 1 [facility] NOTE: Visits indicate total known visits. ED/UCC VISIT TRACKING (12 MO.) 05/20/2019 15:28 [facility] [place] TYPE: Emergency COMPLAINT: - VISION PROBLEM 04/18/2019 15:46 [facility] [place] TYPE: Emergency [...] DISORDERS OF EYE AND ADNEXA - Other longterm (current) drug therapy - Allergy status to other drugs, medicaments and biological substances status - Unspecified retinal disorder - Hypothyroidism, unspecified [facility]08/2018 [facility] DIAGNOSES: - High Blood Sugar (Symptomatic) - SOB,cp,vomiting - Type 1 diabetes mellitus with ketoacidosis without coma - Emesis - Chest Pain 10/22/2018 13:27 [facility] [place] TYPE: Emergency COMPLAINT: - VAGINAL BLEEDING 07/29/2018 22:59 [facility] [place] TYPE: Emergency COMPLAINT: - SOB 06/25/2018 13:22 [facility] [place] TYPE: Emergency COMPLAINT: - BLOOD SUGAR PROBLEM 05/28/2018 13:16 [facility] [place] TYPE: Emergency COMPLAINT: - VOMITING INPATIENT VISIT TRACKING (12 MO.) 04/18/2019 19:31 [facility] [place] TYPE: Observation COMPLAINT: - DKA DIAGNOSES: - Allergy status to other drugs, medicaments and biological substances status - Vomiting, unspecified - Personal history of nicotine dependence - long term care social worker (current) use of insulin - care home (current) use of opiate analgesic - Type 1 diabetes mellitus with ketoacidosis without coma - Dehydration - Personal history of urinary calculi - Hypothyroidism, unspecified - Other longterm (current) drug therapy - Headache - Hyperlipidemia, unspecified 11/08/2018 19:13 [facility] [place] TYPE: Intensive Care DIAGNOSES: - Acetonuria - Dehydration - Glycosuria - Other fatigue - Hyperglycemia, unspecified - Hypo-osmolality and hyponatremia - Acute kidney failure, unspecified - Type 1 diabetes mellitus with ketoacidosis without coma - Other malaise - Nausea with vomiting, unspecified 10/22/2018 13:28 [facility] [place] TYPE: Observation COMPLAINT: - DKA DIAGNOSES: - care home (current) use of insulin - Nicotine dependence, unspecified, uncomplicated - Type 1 diabetes mellitus with ketoacidosis without coma - Hypothyroidism, unspecified - Other longterm (current) drug therapy - Allergy status to other drugs, medicaments and biological substances status 07/29/2018 23:00 [facility] [place] TYPE: Observation COMPLAINT: - DIABETIC KETOACIDOSIS DIAGNOSES: - Other ferry terminal agent (current) drug therapy - Personal history of urinary calculi - Allergy status to other drugs, medicaments and biological substances status - Hypokalemia - Type 1 diabetes mellitus with ketoacidosis without coma - Hypothyroidism, unspecified 06/25/2018 13:[address] [place] TYPE: Observation COMPLAINT: - DKA DIAGNOSES: - Personal history of urinary calculi - Other disorders of phosphorus metabolism - Patient's noncompliance with other medical treatment and regimen - Allergy status to other drugs, medicaments and biological substances status - Personal history of nicotine dependence - Other ferry terminal agent (current) drug therapy - Type 1 diabetes mellitus with ketoacidosis without coma - Dehydration - Hypokalemia - long term care social worker (current) use of insulin - Hyperglycemia, unspecified - Hypomagnesemia - Hypothyroidism, unspecified 05/28/2018 13:17 [place] [place] [place]: [place]ation COMPLAINT: - DKA DIAGNOSES: - Hypokalemia - Other disorders of phosphorus metabolism - Nicotine dependence, unspecified, uncomplicated - Type 1 diabetes mellitus with ketoacidosis without coma - Nausea with vomiting, unspecified - Personal history of urinary calculi - Patient's other noncompliance with medication regimen - Allergy status to other drugs, medicaments and biological substances status - Hypomagnesemia - Other ferry terminal agent (current) drug therapy - Hypothyroidism, unspecified [email or web address]
== END 2019-05-20 16:00 | disposition home or self-care (01) ==
LOC: ED 15:27
DX: H53.9 Unspecified visual disturbance (principal); E10.9 Type 1 diabetes mellitus without complications; E78.5 Hyperlipidemia, unspecified; E05.90 Thyrotoxicosis, unspecified without thyrotoxic crisis or storm; Z87.442 Personal history of urinary calculi; Z88.8 Allergy status to other drugs, medicaments and biological substances; Z79.899 Other long term (current) drug therapy
CPT/HCPCS: 99283

== ENCOUNTER 2019-09-18 10:33 | Emergency (ER) | payer OTHER ==
[~2019-09-18] VITALS: Ht 152.4 cm; Wt 57.2 kg
--- OUTSIDE RECORDS SUMMARY | 2019-09-18 10:36 | XMS ---
PreManage Notification: TENA KERN Security English Lecturer Events No recent Security Events currently on file CRITERIA MET - [facility] - Has Care Guidelines CARE PROVIDERS Teo Albarado [facility] 10/23/2018-Current PHONE: Unknown DARSHAN BACH Internal Medicine 06/26/2018-Current PHONE: Unknown Darshan Bach Primary Care Current PHONE: [phone] Lexy has no Care Guidelines for this patient. Care History Medical/Surgical 07/27/2018 [facility] - PATIENT HAS NO SHOWED TO APTS ON 06/01, 07/13, AND LEFT WITH OUT BEING SEEN ON 07/14 AT [facility]. PATIENT HAS A SCHEDULED APT WITH DR BACH ON 09/06/18. - PATIENT HAS AN LENS SILVERER IN [place] [address] ALTAMIRANO [phone]. PATIENT WAS LAST SEEN BY HER LENS SILVERER ON 12/11/17 AND NO SHOWED TO HER LAST APT IN MARCH OF 2018 AND HAS NOT FOLLOWED UP SINCE. - CHW HAS REFERRED PATIENT TO [facility] AND TO [facility] CASE MANAGEMENT DUE TO HIGH RISK FOR READMISSION. 06/26/2018 [facility] - Patient is currently established with [facility]. If patient is seen in the ED during business hours. Please contact CHWs at [facility]. Care Recommendation: This patient has [...] COUNT (12 MO.) 1 [facility] 6 [facility] TOTAL 7 NOTE: Visits indicate total known visits. ED/C VISIT TRACKING (12 MO.) 09/18/2019 10:34 [facility] [place] TYPE: Emergency COMPLAINT: - BLOOD SUGAR HIGH 05/20/2019 15:28 [facility] [place] TYPE: Emergency COMPLAINT: - VISION PROBLEM DIAGNOSES: - Unspecified visual disturbance - 1 Type 1 diabetes mellitus without complications - Allergy status to oth drug/meds/biol subst status - Personal history of urinary calculi - Other half-way (current) drug therapy - OTHER SPECIFIED DISORDERS OF EYE AND ADNEXA - Thyrotoxicosis, unsp without thyrotoxic crisis or storm - Hyperlipidemia, unspecified - Other specified disorders of eye and adnexa 04/18/2019 15:46 [facility] [place] TYPE: Emergency COMPLAINT: - HEADACHE 04/14/2019 01:32 [facility] [place] TYPE: Emergency COMPLAINT: - MULTIPLE COMPLAINTS DIAGNOSES: - Low back pain - Headache - Thyrotoxicosis, unsp without thyrotoxic crisis or storm - Allergy status to oth drug/meds/biol subst status - OTHER SPECIFIED DISORDERS OF EYE AND ADNEXA - 1 Type 1 diabetes mellitus without complications - Personal history of urinary calculi - Headache 04/12/2019 14:38 [facility] [place] TYPE: Emergency COMPLAINT: - CAN'T SEE WELL DIAGNOSES: - 1 Type 1 diabetes mellitus without complications - Personal history of urinary calculi - Other specified disorders of eye and adnexa - OTHER SPECIFIED DISORDERS OF EYE AND ADNEXA - Other intermission coordinator (current) drug therapy - Allergy status to oth drug/meds/biol subst status - Unspecified retinal disorder - Hypothyroidism, unspecified 11/08/2018 [facility]:[address] [facility] DIAGNOSES: - High Blood Sugar (Symptomatic) - SOB,cp,vomiting - 1 Type 1 diabetes mellitus with ketoacidosis without coma - Emesis - Chest Pain 10/22/2018 13:27 [facility] [place] TYPE: Emergency COMPLAINT: - VAGINAL BLEEDING INPATIENT VISIT TRACKING (12 MO.) 04/18/2019 19:31 [facility] [place] TYPE: Observation COMPLAINT: - DKA DIAGNOSES: - Allergy status to oth drug/meds/biol subst status - Vomiting, unspecified - Personal history of nicotine dependence - terminal worker (current) use of insulin - skilled nursing (current) use of opiate analgesic - 1 Type 1 diabetes mellitus with ketoacidosis without coma - Dehydration - Personal history of urinary calculi - Hypothyroidism, unspecified - Other intermission coordinator (current) drug therapy - Headache - Hyperlipidemia, unspecified 11/08/2018 19:[address] [facility] TYPE: Intensive Care DIAGNOSES: - Acetonuria - Dehydration - Glycosuria - Other fatigue - Hyperglycemia, unspecified - Hypo-osmolality and hyponatremia - Acute kidney failure, unspecified - 1 Type 1 diabetes mellitus with ketoacidosis without coma - Other malaise - Nausea with vomiting, unspecified 10/22/2018 13:28 [facility] [place] TYPE: Observation COMPLAINT: - DKA DIAGNOSES: - skilled nursing (current) use of insulin - Nicotine dependence, unspecified, uncomplicated - 1 Type 1 diabetes mellitus with ketoacidosis without coma - Hypothyroidism, unspecified - Other intermission coordinator (current) drug therapy - Allergy status to oth drug/meds/biol subst status [email or web address]
[2019-09-18] MEDS ORDERED: REGLAN10 MG PO (12:05)
== END 2019-09-18 12:23 | disposition home or self-care (01) ==
LOC: ED 10:33
DX: E10.65 Type 1 diabetes mellitus with hyperglycemia (principal); E78.5 Hyperlipidemia, unspecified; Z88.8 Allergy status to other drugs, medicaments and biological substances; Z79.899 Other long term (current) drug therapy
CPT/HCPCS: 80053; 81001; 84703; 85025; 96361; 96374; 99284-25; J1815; J7030

== ENCOUNTER 2020-01-11 08:02 | Emergency (ER) | payer OTHER ==
[~2020-01-11] VITALS: Ht 152.4 cm; Wt 51.7 kg
[~2020-01-11 08:02] MED LIST changes: +REGLAN10 MG PO
--- OUTSIDE RECORDS SUMMARY | 2020-01-11 08:04 | XMS ---
PreManage Notification: TENA KERN Security Inside Account Representative Events No recent Security Events currently on file CRITERIA MET - [facility] - Has Care Guidelines - [facility] - 2 Visits in 30 Days CARE PROVIDERS TELLY GERMAIN Emergency Medicine 09/19/2019-Current PHONE: [phone] Teo Albarado [facility] [place] 10/23/2018-Current PHONE: [phone] LILA SATNAMARIA Internal Medicine 06/26/2018-Current PHONE: Unknown Lexy has no Care Guidelines for this patient. Care History Medical/Surgical 09/19/2019 [facility] - PATIENT HAS A FOLLOW UP APT WITH TELLY GERMAIN ON 09/25/2019 @ 1:30PM. 07/27/2018 [facility] - PATIENT HAS NO SHOWED TO APTS ON 06/01, 07/13, AND LEFT WITH OUT BEING SEEN ON 07/14 AT [facility]. PATIENT HAS A SCHEDULED APT WITH DR SANTAMARIA ON 09/06/18. - PATIENT HAS AN SKIN PILER IN [place] [address] ALTAMIRANO [phone]. PATIENT WAS LAST SEEN BY HER SKIN PILER ON 12/11/17 AND NO SHOWED TO HER LAST APT IN MARCH OF 2018 AND HAS NOT FOLLOWED UP SINCE. - [facility] HAS REFERRED PATIENT TO [facility] AND TO [facility]NAG[facility] DUE TO HIGH RISK FOR READMISSION. 06/26/2018 [facility] - Patient is currently established with [facility]. If patient is seen in the ED during business hours. Please contact CHWs at [facility]. Care Recommendation: This patient has had 5 [...] providing care. E.D. VISIT COUNT (12 MO.) 7 [facility]. TOTAL 7 NOTE: Visits indicate total known visits. ED/UCC VISIT TRACKING (12 MO.) 01/11/2020 08:02 [facility] [place] TYPE: Emergency COMPLAINT: - LOW BP 12/15/2019 13:16 [facility] [place] TYPE: Emergency COMPLAINT: - VOMITING 09/18/2019 10:34 [facility] [place] TYPE: Emergency COMPLAINT: - BLOOD SUGAR HIGH DIAGNOSES: - Hyperlipidemia, unspecified - Type 1 diabetes mellitus with hyperglycemia - Allergy status to other drugs, medicaments and biological sub - Nausea with vomiting, unspecified - Other dye expert (current) drug therapy 05/20/2019 15:28 [facility] [place] TYPE: Emergency COMPLAINT: - VISION PROBLEM DIAGNOSES: - Unspecified visual disturbance - Type 1 diabetes mellitus without complications - Allergy status to other drugs, medicaments and biological sub - Personal history of urinary calculi - Other half-way (current) drug therapy - OTHER SPECIFIED DISORDERS OF EYE AND ADNEXA - Thyrotoxicosis, unspecified without thyrotoxic crisis or stor - Hyperlipidemia, unspecified - Other specified disorders of eye and adnexa 04/18/2019 15:46 [facility] [place] TYPE: Emergency COMPLAINT: - HEADACHE 04/14/2019 01:32 [facility] [place] TYPE: Emergency COMPLAINT: - MULTIPLE COMPLAINTS DIAGNOSES: - Low back pain - Headache - Thyrotoxicosis, unspecified without thyrotoxic crisis or stor - Allergy status to other drugs, medicaments and biological sub - OTHER SPECIFIED DISORDERS OF EYE AND [...] DISORDERS OF EYE AND ADNEXA - Other dye expert (current) drug therapy - Allergy status to other drugs, medicaments and biological sub - Unspecified retinal disorder - Hypothyroidism, unspecified INPATIENT VISIT TRACKING (12 MO.) 12/15/2019 13:17 [facility] [place] TYPE: Observation COMPLAINT: - VOMITING DIAGNOSES: - Allergy status to other drugs, medicaments and biological sub - local intermodal truck driver (current) use of insulin - Type 1 diabetes mellitus with ketoacidosis without coma - Vomiting, unspecified - Other dye expert (current) drug therapy - Hypothyroidism, unspecified 04/18/2019 19:31 [facility] [place] TYPE: Observation COMPLAINT: - DKA DIAGNOSES: - Allergy status to other drugs, medicaments and biological sub - Vomiting, unspecified - Personal history of nicotine dependence - local intermodal truck driver (current) use of insulin - local intermodal truck driver (current) use of opiate analgesic - Type 1 diabetes mellitus with ketoacidosis without coma - Dehydration - Personal history of urinary calculi - Hypothyroidism, unspecified - Other dye expert (current) drug therapy - Headache - Hyperlipidemia, unspecified [email or web address]
--- NOTE | 2020-01-11 12:31 | EKG ---
[facility] [address] [facility] [place], [place] [address] Signed Normal sinus rhythm with sinus arrhythmia Normal ECG When compared with ECG of 22-OCT-2018 13:47, No significant change was found Confirmed by ESAU BROWNE DO ([id number]) on 01/11/2020 12:31:14 PM Electronically Signed By: ESAU BROWNE DO 01/11/20 1231 PATIENT NAME: TENA KERN Electrocardiogram DATE OF : [birth year] PHYSICIAN: ESAU BROWNE DO REPORT #: [id number] REPORT IS CONFIDENTIAL AND NOT TO BE RELEASED WITHOUT AUTHORIZATION
== END 2020-01-11 11:23 | disposition home or self-care (01) ==
LOC: ED 08:02
DX: E10.649 Type 1 diabetes mellitus with hypoglycemia without coma (principal); E78.5 Hyperlipidemia, unspecified; Z88.8 Allergy status to other drugs, medicaments and biological substances; Z79.899 Other long term (current) drug therapy
CPT/HCPCS: 70450; 80053; 84702; 85025; 93005; 93010; 99285-25; U0002

== ENCOUNTER 2020-08-16 09:02 | Emergency (ER) | payer OTHER ==
[~2020-08-16] VITALS: Ht 152.4 cm; Wt 60.4 kg
--- OUTSIDE RECORDS SUMMARY | 2020-08-16 09:04 | XMS ---
PreManage Notification: TENA KERN Security Analytical Data Miner Events No recent Security Events currently on file CRITERIA MET - [facility] CARE PROVIDERS SHERIF COMBS Physician Market Research Assistant 01/14/2020-Current PH[facility]: [phone] [facility]-Current PHONE: [phone] KIERRA MARKS Internal Medicine: Endocrinology, 01/14/2020-Current Diabetes \T\ Metabolism PHONE: [phone] Teo Albarado [facility] 10/23/2018-Current PHONE: [phone] LILA SANTAMARIA Internal Medicine 06/26/2018-Current PHONE: Unknown Lexy has no Care Guidelines for this patient. Care History Medical/Surgical 01/14/2020 [facility] - PATIENT CURRENT DUMPSTER OPERATOR IS DR MARKS [facility]. - PATIENT PCP- [facility]- SHERIF COMBS IS PATIENT PCP- LAST APT WAS IN OCTOBER 2019. 09/19/2019 [facility] - PATIENT HAS A FOLLOW UP APT WITH TELLY GERMAIN ON 09/25/2019 @ 1:30PM. 07/27/2018 [facility] - PATIENT HAS NO SHOWED TO APTS ON 06/01, 07/13, AND LEFT WITH OUT BEING SEEN ON 07/14 AT [facility]. PATIENT HAS A SCHEDULED APT WITH DR SANTAMARIA ON 09/06/18. - PATIENT HAS AN DUMPSTER OPERATOR IN [place] [address] ALTAMIRANO [phone]. PATIENT WAS LAST SEEN BY HER DUMPSTER OPERATOR ON 12/11/17 AND NO SHOWED TO HER LAST APT IN MARCH OF 2018 AND HAS NOT FOLLOWED UP SINCE. - [facility] AND TO [facility] CASE MANAGEMENT DUE TO HIGH RISK FOR READMISSION. E.D. VISIT COUNT (12 MO.) 4 [facility] TOTAL 4 NOTE: Visits indicate total known visits. ED/UCC VISIT TRACKING (12 MO.) 08/16/2020 09:03 [facility] [place] TYPE: Emergency COMPLAINT: - LEFT LEG PAIN/SWELLING NON INJURY 01/11/2020 08:02 [facility] [place] TYPE: Emergency COMPLAINT: - LOW BP DIAGNOSES: - Hyperlipidemia, unspecified - Other intermediate school teacher (current) drug therapy - Contact with and (suspected) exposure to other viral communicable diseases - Type 1 diabetes mellitus with hypoglycemia without coma - Allergy status to other drugs, medicaments and biological substances 12/15/2019 13:16 [facility] [place] [facility] [place] TYPE: Emergency COMPLAINT: - VOMITING 09/18/2019 10:34 [facility] [place] [place] TYPE: Emergency COMPLAINT: - BLOOD SUGAR HIGH DIAGNOSES: - Hyperlipidemia, unspecified - Type 1 diabetes mellitus with hyperglycemia - Allergy status to other drugs, medicaments and biological substances - Nausea with vomiting, unspecified - Other senior care (current) drug therapy INPATIENT VISIT TRACKING (12 MO.) 12/15/2019 13:17 [facility] [place] [facility] [place] TYPE: Observation COMPLAINT: - VOMITING DIAGNOSES: - Allergy status to other drugs, medicaments and biological substances - rat exterminator (current) use of insulin - Type 1 diabetes mellitus with ketoacidosis without coma - Vomiting, unspecified - Other intermediate school teacher (current) drug therapy - Hypothyroidism, unspecified [email or web address]
[2020-08-16] MEDS ORDERED: ASPIRIN81 MG PO (09:26)
[2020-08-16] MEDS ORDERED: LEVOTHYROXINE137 MC1 PO (09:26)
== END 2020-08-16 10:48 | disposition home or self-care (01) ==
LOC: ED 09:02
DX: O9A.212 Injury, poisoning and certain other consequences of external causes complicating pregnancy, second trimester (principal); S86.112A Strain of other muscle(s) and tendon(s) of posterior muscle group at lower leg level, left leg, initial encounter; O99.282 Endocrine, nutritional and metabolic diseases complicating pregnancy, second trimester; O24.312 Unspecified pre-existing diabetes mellitus in pregnancy, second trimester; E10.9 Type 1 diabetes mellitus without complications; Z3A.25 25 weeks gestation of pregnancy; E78.5 Hyperlipidemia, unspecified; E05.90 Thyrotoxicosis, unspecified without thyrotoxic crisis or storm; Z88.8 Allergy status to other drugs, medicaments and biological substances; Z79.899 Other long term (current) drug therapy; Z79.82 Long term (current) use of aspirin
CPT/HCPCS: 93971; 99283-25

== ENCOUNTER 2020-11-19 06:10 | Inpatient (IN) | payer OTHER ==
[~2020-11-19] VITALS: Ht 152.4 cm; Wt 63.5 kg
[~2020-11-19 06:10] MED LIST changes: +ASPIRIN81 MG PO; +LEVOTHYROXINE137 MC1 PO
--- NOTE | 2020-11-19 08:37 | PR ---
[facility] [address] [place], [place] [address] Signed Progress Notes IP Datetime Report Generated by CPN: 11/19/2020 08:37 PROGRESS NOTES: [id number] VITAL SIGNS: [id number] Vital Signs: Reviewed; Within Normal Limits EXAM: [id number] Dilatation: 0.0 Effacement: 0 Station: -3 Contractions: irregular MEMBRANES: [id number] Membranes Status: Intact Comments: Patient took long-acting Insulin this morning (misunderstood directions), with BS = 70. Feeling OK, no symptoms of hypoglycemia a this time. Will start IV D5LR and contiue monitoring. Cytotec not given yet due to full FBC. Will continue to monitor. FETUS A: [id number] FHR Baseline: 120 Variability: Moderate 6-25bpm Accelerations: 15X15 Presentation: Vertex FETUS B: [id number] Signing Physician: Terrence Kamara MD Copies: ~ *Electronically Signed* 11/19/20 0837 TERRENCE KAMARA MD PATIENT NAME: CHERYL KERNMichael ROSECECIDIONTE PARSONS PROGRESS NOTE DATE OF : [birth year] PHYSICIAN: TERRENCE KAMARA MD RPT #: [id number] REPORT IS CONFIDENTIAL AND NOT TO BE RELEASED WITHOUT AUTHORIZATION
--- NOTE | 2020-11-19 12:56 | PR ---
[facility] [address] [facility] [place], [place] [address] Signed Progress Notes IP Datetime Report Generated by CPN: 11/19/2020 12:56 PROGRESS NOTES: [id number] Plan: Continue Present Management; Induction VITAL SIGNS: [id number] Vital Signs: Reviewed; Within Normal Limits EXAM: [id number] Dilatation: 1.0 Effacement: 25 Station: -3 Contractions: irregular MEMBRANES: [id number] Membranes Status: Intact Comments: Received Cytotec x1, having few contractions. BS's stable now, will continue monitoring. Continue with Cytotec induction. FETUS A: [id number] FHR Baseline: 120 Variability: Moderate 6-25bpm Accelerations: 15X15 Presentation: Vertex FETUS B: [id number] Signing Physician: Trent Key MD Copies: ~ *Electronically Signed* 11/19/20 1256 TRENT KEY MD PATIENT NAME: TENA KERN PROGRESS NOTE DATE OF : [birth year] PHYSICIAN: TRENT KEY MD RPT #: [id number] REPORT IS CONFIDENTIAL AND NOT TO BE RELEASED WITHOUT AUTHORIZATION
--- NOTE | 2020-11-19 18:29 | PR ---
[facility] [address] [facility] [place], [place] [address] Signed Progress Notes IP Datetime Report Generated by CPN: 11/19/2020 18:28 PROGRESS NOTES: [id number] Impression: Normal Progression of Labor Plan: Continue Present Management; Augmentation VITAL SIGNS: [id number] Vital Signs: Reviewed; Within Normal Limits EXAM: I6239443 Dilatation: 2.0 Effacement: 50 Station: -3 Contractions: irregular MEMBRANES: S5244509 Membranes Status: Intact Comments: Patient feeling only occasional contractions, even though seem to be regular. Will try Cytotec 1 more time. Continuing to adjust 1/2 NS and D5 1/2 NS with or without Insulin, to keep BS in correct range. FETUS A: [id number] FHR Baseline: 120 Variability: Moderate 6-25bpm Accelerations: 15X15 Presentation: Vertex FETUS B: [id number] Signing Physician: Terrence Key MD Copies: ~ *Electronically Signed* 11/19/20 1828 TERRENCE KEY MD PATIENT NAME: CHERYL KERNH CECI PARSONS PROGRESS NOTE DATE OF : [birth year] PHYSICIAN: TERRENCE KEY MD RPT #: [id number] REPORT IS CONFIDENTIAL AND NOT TO BE RELEASED WITHOUT AUTHORIZATION
--- NOTE | 2020-11-19 23:24 | PR ---
[facility] [address] [place], [place] [address] Signed Progress Notes IP Datetime Report Generated by CPN: 11/19/2020 23:24 PROGRESS NOTES: [id number] Impression: Normal Progression of Labor Procedures: Artificial ROM Plan: Continue Present Management; Deliver- Section VITAL SIGNS: G9362233 Vital Signs: Reviewed; Within Normal Limits EXAM: I2047294 Dilatation: 2.5 Effacement: 75 Station: -3 Contractions: irregular MEMBRANES: [id number] Membranes Status: Ruptured Comments: Comfortable with Epidural, having occasional late decels but good variability and accelerations. BS's up and down, but will continue to adjust. FETUS A: [id number] FHR Baseline: 120 Variability: Moderate 6-25bpm Accelerations: 15X15 Presentation: Vertex FETUS B: [id number] Signing Physician: Trent Key MD Copies: ~ *Electronically Signed* 11/19/20 2328 TRENT KEY MD PATIENT NAME: TENA KERN PROGRESS NOTE DATE OF : [birth year] PHYSICIAN: TRENT KEY MD RPT #: [id number] REPORT IS CONFIDENTIAL AND NOT TO BE RELEASED WITHOUT AUTHORIZATION
--- NOTE | 2020-11-20 00:40 | PR ---
[facility] [address] [place], [place] [address] Signed Progress Notes IP Datetime Report Generated by CPN: 11/20/2020 00:40 PROGRESS NOTES: [id number] Impression: Non-reassuring Heart Rate Other Impressions: Slow progress Procedures: Artificial ROM Plan: Deliver- Section Informed Consent Obtain: Section Delivery VITAL SIGNS: [id number] Vital Signs: Reviewed; Within Normal Limits EXAM: [id number] Dilatation: 2.5 Effacement: 80 Station: -2 Contractions: irregular MEMBRANES: [id number] Membranes Status: Ruptured Comments: Patient with slow progress and intermittent late decels, now with repetitive late decels with good variability despite IV fluids, trying different positions. BS's now 73 despite getting D5 1/2 NS and no Insulin. Given SQ Glucagon. Recommend C/S due to Non-reassuring FHR tracing early in labor, along with poorly controlled Type 1 DM. DIscussed risks vs benefits with patient. Questions answered. Consent signed. order caller to OR (Anesthesia and OR crew called). FETUS A: [id number] FHR Baseline: 120 Variability: Moderate 6-25bpm Accelerations: 15X15 Presentation: Vertex FETUS B: [id number] Signing Physician: Trent Key MD Copies: ~ *Electronically Signed* 11/20/20 0040 TRENT KEY MD PATIENT NAME: TENA KERN PROGRESS NOTE DATE OF : [birth year] PHYSICIAN: TRENT KEY MD RPT #: [id number] REPORT IS CONFIDENTIAL AND NOT TO BE RELEASED WITHOUT AUTHORIZATION
--- NOTE | 2020-11-20 00:53 | PR ---
[facility] [address] [facility] [place], [place] [address] Signed Progress Notes IP Datetime Report Generated by CPN: 11/20/2020 00:53 PROGRESS NOTES: [id number] Impression: Non-reassuring Heart Rate Other Impressions: Slow progress Procedures: Artificial ROM Plan: Deliver- Section Informed Consent Obtain: Section Delivery VITAL SIGNS: H7187700 Vital Signs: Reviewed; Within Normal Limits EXAM: G9528811 Dilatation: 2.5 Effacement: 80 Station: -2 Contractions: irregular MEMBRANES: [id number] Membranes Status: Ruptured Comments: BS down to 63. Will give 1/2 Amp D50 now. Anesthesia here, OR crew setting up for C/S FETUS A: [id number] FHR Baseline: 120 Variability: Moderate 6-25bpm Accelerations: 15X15 Presentation: Vertex FETUS B: [id number] Signing Physician: Trent Key MD Copies: ~ *Electronically Signed* 11/20/20 0053 TRENT KEY MD PATIENT NAME: KERNTENA MARTIN PROGRESS NOTE DATE OF : [birth year] PHYSICIAN: TRENT KEY MD RPT #: [id number] REPORT IS CONFIDENTIAL AND NOT TO BE RELEASED WITHOUT AUTHORIZATION
--- NOTE | 2020-11-20 02:21 | NUR ---
11/20/20 022 Natacha Rosa 0214 PATIENT ARRIVES TO ROOM 105 SLEEPING, OPENS EYES WITH VERBAL STIMULI, BACK TO SLEEP WHEN NOT STIMULATED. RESP EVEN AND UNLABORED, ROOM AIR SATS >95%. DENIES PAIN OR NAUSEA.
--- NOTE | 2020-11-21 12:23 | PR ---
[facility] [address] [facility] [place], [place] [address] Signed PP Progress Notes Datetime Report Generated by CPN: 11/21/2020 12:23 SUBJECTIVE: [id number] Pain: Within Normal Limits Nausea/Vomiting: Denies Vital Signs: [id number] Vital Signs: Reviewed; Within Normal Limits Notable Details: BS = 73. Hgb/Hct = 10.6/30.9 Abdomen/Uterus: Normal Lochia: Normal Extremities: Normal Incision: Normal IMPRESSION/PLAN/PROCEDURES: [id number] Impression: Normal Progression Plan: Continue Present Management Procedures: None Progress Notes: Doing well, without complaint, feeling better today. Patient has had no Insulin since delivery and BS's still low. Encourage to eat better, follow Diabetes diet. Increase activity as tolerated. Signing Physician: Trent Key MD Copies: ~ *Electronically Signed* 11/21/20 1223 TRENT KEY MD PATIENT NAME: TENA KERN PROGRESS NOTE DATE OF : [birth year] PHYSICIAN: TRENT KEY MD RPT #: [id number] REPORT IS CONFIDENTIAL AND NOT TO BE RELEASED WITHOUT AUTHORIZATION
--- NOTE | 2020-11-21 12:26 | OR ---
[facility] [address] [place], [place] [address] Signed DATE OF OPERATION: 11/20/2020 SURGEON: Terrence Kamara MD PREOPERATIVE DIAGNOSES: Term , type 1 diabetes with poor control, nonreassuring heart rate tracing. POSTOPERATIVE DIAGNOSES: Term , type 1 diabetes with poor control, nonreassuring heart rate tracing. PROCEDURE: Primary low transverse segment section, delivery of live male infant. DIESEL SCOOP OPERATOR: Lily Garnett MD. ANESTHESIA: Epidural and general. ESTIMATED BLOOD LOSS: 700 mL. COMPLICATIONS: None. DRAINS: Puri to bladder. FINDINGS: Live male infant, Apgars 9 and 9. Weight 7 pounds 8 ounces. Normal uterus, normal tubes and ovaries bilateral. DESCRIPTION OF PROCEDURE: The patient was brought to the operating room and placed in supine position. After epidural anesthesia was given, the patient was prepped and draped in the usual sterile fashion. The patient already had Puri catheter in place. The epidural was not completely effective, so general anesthesia was obtained, and as soon as the general anesthesia was obtained, a Pfannenstiel skin incision was made with a scalpel and the Electronically Signed By: TERRENCE KAMARA MD 11/21/20 1226 PATIENT NAME: TENA KERN OPERATIVE REPORT DATE OF : [birth year] REPORT #: [id number] PHYSICIAN: TERRENCE KAMARA MD PCP: SHERIF COMBS PA-C REPORT IS CONFIDENTIAL AND NOT TO BE RELEASED WITHOUT AUTHORIZATION [facility] [address] [place], [place] [address] Signed subcutaneous tissue dissected with a scalpel and 3ith finger dissection. The fascia was nicked with scalpel and extended in a transverse fashion using curved scissors. The underlying abdominal musculature was bluntly and sharply from the fascia above and below the incision. The abdominal musculature and peritoneum were entered with finger dissection. The abdominal musculature was along the midline and the peritoneum extended also in a vertical fashion. The Husam self-retaining retractor was inserted into the incision and the lower uterine segment, carefully nicked with a scalpel, and finger dissection used to extend the incision in transverse fashion. Infant was noted to be in the vertex GLORY presentation. The infant's head delivered from the incision. Cord was noted to be around the neck once loosely. This was removed and the rest of the infant delivered from the incision. The cord was doubly clamped and cut. The passed off the table in good condition to the awaiting primary products inspectors. Cord gases were obtained and the placenta manually removed. Uterine cavity was explored with a lap pad to remove any retained membranes. An angled stitch of 0 Monocryl was placed at one end of the incision and a running locking stitch of 0 Monocryl starting at the other end used to close the incision. A second running stitch of 0 Monocryl was used to imbricate the first layer. There was slight hematoma at each angle. This was controlled with a jnighe-pn-ktihs stitch of 0 Monocryl with a finger placed behind the broad ligament during stitch placement to make sure no other bowel or pelvic structures were caught. With these two stitches in place, good hemostasis was noted. The entire pelvis was irrigated, suctioned, and examined, and any superficial bleeding spots cauterized with the Bovie. The Husam retractor was then removed and a sheet of ACell placed over the lower uterine segment. The anterior wall of the peritoneum was closed using running stitch of 2-0 Vicryl suture. The abdominal musculature was reapproximated using interrupted stitches of 0 Vicryl suture. The abdominal wall incision was irrigated, suctioned, examined, and any bleeding spots were cauterized with the Bovie. Powdered ACell was sprinkled over the abdominal musculature, and then the fascia closed using two running stitches of 0 Vicryl suture, meeting in the midline. The subcutaneous tissue was closed using interrupted stitches of 3-0 Vicryl suture and the skin reapproximated using skin clips. The patient tolerated the procedure well and went to recovery room in good condition. Sponge, needle, and instrument counts were correct at the end of the procedure. Cord gases were sent to the lab. MD DELANO ChoiB/MODL /[id number] Electronically Signed By: TERRENCE KAMARA MD 11/21/20 1226 PATIENT NAME: TENA KERN OPERATIVE REPORT DATE OF : [birth year] REPORT #: [id number] PHYSICIAN: TERRENCE KAMARA MD PCP: SHERIF COMBS PA-C REPORT IS CONFIDENTIAL AND NOT TO BE RELEASED WITHOUT AUTHORIZATION [address] [address] Signed Copies: ~ Electronically Signed By: TERRENCE KAMARA MD 11/21/20 1226 PATIENT NAME: TENA KERN OPERATIVE REPORT DATE OF : [birth year] REPORT #: [id number] PHYSICIAN: TERRENCE KAMARA MD PCP: SHERIF COMBS PA-C REPORT IS CONFIDENTIAL AND NOT TO BE RELEASED WITHOUT AUTHORIZATION
--- NOTE | 2020-11-22 12:24 | PR ---
[facility] [address] [facility] [place], [place] [address] Signed PP Progress Notes Datetime Report Generated by CPN: 11/22/2020 12:24 SUBJECTIVE: [id number] Pain: Within Normal Limits Nausea/Vomiting: Denies Vital Signs: [id number] Vital Signs: Reviewed; Within Normal Limits Notable Details: BS = 73. Hgb/Hct = 10.6/30.9 Abdomen/Uterus: Normal Lochia: Normal Extremities: Normal Incision: Normal IMPRESSION/PLAN/PROCEDURES: [id number] Impression: Normal Progression Plan: Discharge Procedures: None Progress Notes: Doing well, without complaint, doing better with Medina (Percocet made her too sleepy), BS's still normal with no Insulin, ready to go home. Signing Physician: Trent Key MD Copies: ~ *Electronically Signed* 11/22/20 1224 TRENT KEY MD PATIENT NAME: TENA KERN PROGRESS NOTE DATE OF : [birth year] PHYSICIAN: TRENT KEY MD RPT #: [id number] REPORT IS CONFIDENTIAL AND NOT TO BE RELEASED WITHOUT AUTHORIZATION
== END 2020-11-22 13:05 | disposition home or self-care (01) | DRG 788 ==
LOC: FBC 06:10
PROVIDERS: ADMIT General Practice; ATTEND General Practice
PROC: 3E0P7VZ Introduction of Hormone into Female Reproductive, Via Natural or Artificial Opening (ICD-10-PCS; 2020-11-19)
PROC: 10907ZC Drainage of Amniotic Fluid, Therapeutic from Products of Conception, Via Natural or Artificial Opening (ICD-10-PCS; 2020-11-19)
PROC: 00HU33Z Insertion of Infusion Device into Spinal Canal, Percutaneous Approach (ICD-10-PCS; 2020-11-19)
PROC: 3E0R3BZ Introduction of Anesthetic Agent into Spinal Canal, Percutaneous Approach (ICD-10-PCS; 2020-11-19)
PROC: 10D00Z1 Extraction of Products of Conception, Low, Open Approach (ICD-10-PCS; principal; 2020-11-20 01:18)
DX: O24.02 Pre-existing type 1 diabetes mellitus, in childbirth (principal); E10.649 Type 1 diabetes mellitus with hypoglycemia without coma; Z37.0 Single live birth; O76 Abnormality in fetal heart rate and rhythm complicating labor and delivery; O69.81X0 Labor and delivery complicated by cord around neck, without compression, not applicable or unspecified; Z79.4 Long term (current) use of insulin; Z3A.39 39 weeks gestation of pregnancy; O99.824 Streptococcus B carrier state complicating childbirth; Z88.8 Allergy status to other drugs, medicaments and biological substances; Z87.891 Personal history of nicotine dependence; O99.284 Endocrine, nutritional and metabolic diseases complicating childbirth; E03.9 Hypothyroidism, unspecified; Z79.899 Other long term (current) drug therapy; Z79.82 Long term (current) use of aspirin; Z87.440 Personal history of urinary (tract) infections
CPT/HCPCS: 01961; 36415; 82803; 85027; A9270; J0330; J0690; J1610; J1815; J1885; J2274; J2405; J2540; J2590; J2704; J2765; J2795; J3010; J7030; J7042; J7070; J7121

== ENCOUNTER 2021-04-14 16:45 | Emergency (ER) | payer OTHER ==
[~2021-04-14] VITALS: Ht 152.4 cm; Wt 49.9 kg
[2021-04-14] MEDS ORDERED: LEVOTHYROXINE150 MCG PO (17:24)
== END 2021-04-14 19:44 | disposition home or self-care (01) ==
LOC: ED 16:45
DX: R55 Syncope and collapse (principal); E10.9 Type 1 diabetes mellitus without complications; E78.5 Hyperlipidemia, unspecified; E05.90 Thyrotoxicosis, unspecified without thyrotoxic crisis or storm; Z88.8 Allergy status to other drugs, medicaments and biological substances; Z79.899 Other long term (current) drug therapy
CPT/HCPCS: 80053; 81001; 84443; 85025; 99284; J7040

== ENCOUNTER 2022-09-09 05:13 | Emergency (ER) | payer OTHER ==
[~2022-09-09] VITALS: Ht 152.4 cm; Wt 54.4 kg
[~2022-09-09 05:13] MED LIST changes: +LEVOTHYROXINE150 MCG PO
== END 2022-09-09 06:53 | disposition home or self-care (01) ==
LOC: ED 05:13
DX: S39.012A Strain of muscle, fascia and tendon of lower back, initial encounter (principal); X58.XXXA Exposure to other specified factors, initial encounter; E10.9 Type 1 diabetes mellitus without complications; E78.5 Hyperlipidemia, unspecified; Z88.8 Allergy status to other drugs, medicaments and biological substances; Z79.4 Long term (current) use of insulin; Z79.899 Other long term (current) drug therapy
CPT/HCPCS: 36415; 80053; 81003; 83690; 84703; 85025; 96374; 99284-25; J1885

== ENCOUNTER 2023-07-27 21:14 | Inpatient (IN) | payer OTHER ==
[~2023-07-27] VITALS: Ht 149.9 cm; Wt 68.5 kg
[2023-07-27 21:54] LABS: MCH 32.1 (27-36); MCHC 34.4 g/dl (30-36); MCV 93.2 fl (81-99); RBC 3.75 M/ul (4.3-5.7); RDW 13.3 (10.5-15.0)
[2023-07-27 22:21] VITALS: BP 111/72
[2023-07-27 23:01] LABS: ABO O; ANTIBODY SCREEN NEGATIVE; RH POSITIVE
--- NOTE | 2023-07-28 00:04 | NUR ---
07/28/23 0004 Kimmy,Nella 2355- PT ARRIVES TO [facility] ROOM #104 ALERT AND ORIENTED. PT REPORTS NO PAIN OR NAUSEA. RESP EVEN AND UNLABORED. CONTINUOUS PULSE OX IN PLACE. OXYGEN SAT HIGH 90'S ON RA. 18G IV TO PT'S RIGHT HAND INFUSING LR WITH 20 UNITS OF PITOCIN WNL. PT REPORTS NO PAIN TO THE SITE. NO REDNESS OR SWELLING NOTED. 0000- BABY TO LEFT BREAST WITH ASSISTANCE FROM ADDIE [facility] RN.
[2023-07-28 00:38] VITALS: BP 121/81
[2023-07-28 00:45] LABS: AMPHETAMINES, URINE NEGATIVE (NEGATIVE); BARBITURATES, URINE NEGATIVE (NEGATIVE); BENZODIAZEPINE, URINE NEGATIVE (NEGATIVE); BUPRENORPHINE, URINE NEGATIVE (NEGATIVE); CANNABINOID, URINE POSITIVE (NEGATIVE); COCAINE, URINE NEGATIVE (NEGATIVE); ECSTASY, URINE NEGATIVE (NEGATIVE); FENTANYL, URINE NEGATIVE (NEGATIVE); METHADONE, URINE NEGATIVE (NEGATIVE); OPIATES, URINE NEGATIVE (NEGATIVE); OXYCODONE, URINE NEGATIVE (NEGATIVE); PHENCYCLIDINE, URINE NEGATIVE (NEGATIVE)
[2023-07-28 05:28] LABS: HEMATOCRIT 29.9 % (35.0-50.0); HEMOGLOBIN 10.2 g/dL (12.0-18.0); MCH 32.1 (27-36); MCHC 34.1 g/dl (30-36); MCV 94.2 fl (81-99); RBC 3.18 M/ul (4.3-5.7); RDW 13.1 (10.5-15.0)
--- NOTE | 2023-07-28 09:30 | PR ---
[facility] [address] [facility] [place], [place] [address] Signed PP Progress Notes Datetime Report Generated by CPN: 07/28/2023 09:30 SUBJECTIVE: [id number] Pain: Within Normal Limits Nausea/Vomiting: Denies Flatus: Yes Bowel Movement: No Vital Signs: H1369809 Vital Signs: Reviewed Cardiovascular: Normal Respiratory: Normal Abdomen/Uterus: Normal Lochia: Normal Vulva/Perineum: Not Done Breasts: Not Done CVA Tenderness: Normal Extremities: Normal Incision: Normal Progress: Normal Exam Comments: Fundus firm U-2 nontender IMPRESSION/PLAN/PROCEDURES: [id number] Impression: Normal Progression Plan: Continue Present Management Progress Notes: Pt seen and examined. Doing well. Pain well controlled. Glucose levels well controlled. Called Natali Mercado (endocrine) and left message for recommended pump settings . Lochia and discharge normal. No concerns. Continue care. Signing Physician: Roger Morillo DO Copies: ~ *Electronically Signed* 07/28/23929 ROGER MORILLO (DIPIKA) DO PATIENT NAME: CHERYL KERNH CECI PARSONS PROGRESS NOTE DATE OF : 97 PHYSICIAN: ROGER MORILLO) DO RPT #: [id number] REPORT IS CONFIDENTIAL AND NOT TO BE RELEASED WITHOUT AUTHORIZATION
--- NOTE | 2023-07-29 11:09 | PR ---
[facility] [address] [place], [place] [address] Signed PP Progress Notes Datetime Report Generated by CPN: 07/29/2023 11:08 SUBJECTIVE: [id number] Pain: Within Normal Limits Nausea/Vomiting: Denies Flatus: Yes Bowel Movement: No Vital Signs: [id number] Vital Signs: Reviewed; Within Normal Limits Cardiovascular: Normal Respiratory: Normal Abdomen/Uterus: Normal Lochia: Normal Vulva/Perineum: Not Done Breasts: Not Done CVA Tenderness: Normal Extremities: Normal Incision: Normal Progress: Normal Exam Comments: Fundus firm U-2 nontender IMPRESSION/PLAN/PROCEDURES: [id number] Impression: Normal Progression Plan: Continue Present Management Progress Notes: Pt seen and examined. Doing well. Ambulating, voiding, and tolerating full diet. Pain intermittently high but controlled. No fevers/chills or other concerns. Blood glucose controlled w/ current settings. Appreciate Natali Mercado's input. Anticipate d/c home tomorrow. Signing Physician: Lynn Alvarez MD Copies: ~ *Electronically Signed* 07/29/23 1108 LYNN ALVAREZ MD PATIENT NAME: TENA KERN PROGRESS NOTE DATE OF : [birth year] PHYSICIAN: LYNN ALVAREZ MD RPT #: [id number] REPORT IS CONFIDENTIAL AND NOT TO BE RELEASED WITHOUT AUTHORIZATION
--- NOTE | 2023-07-30 09:56 | PR ---
[facility] [address] [facility] [place], [place] [address] Signed PP Progress Notes Datetime Report Generated by CPN: 07/30/2023 09:56 SUBJECTIVE: [id number] Pain: Within Normal Limits Nausea/Vomiting: Denies Flatus: Yes Bowel Movement: No Vital Signs: [id number] Vital Signs: Reviewed; Within Normal Limits Cardiovascular: Normal Respiratory: Normal Abdomen/Uterus: Abnormal Lochia: Normal Vulva/Perineum: Not Done Breasts: Not Done CVA Tenderness: Not Done Extremities: Normal Incision: Normal Progress: Abnormal Exam Comments: Abdomen with active BS. Fundus firm, NT @ U-1. IMPRESSION/PLAN/PROCEDURES: [id number] Impression: Normal Progression Plan: Remove [place]; Discharge Procedures: None Progress Notes: Doing well overall other than breast feeding. She desires D/C. Signing Physician: Lily Garnett MD Copies: ~ *Electronically Signed* 07/30/23 0956 LILY GARNETT MD PATIENT NAME: TENA KERN PROGRESS NOTE DATE OF : [birth year] PHYSICIAN: LILY GARNETT MD RPT #: [id number] REPORT IS CONFIDENTIAL AND NOT TO BE RELEASED WITHOUT AUTHORIZATION
== END 2023-07-30 12:15 | disposition home or self-care (01) | DRG 786 ==
LOC: FBCO 21:14 → FBC 21:26
PROVIDERS: Obstetrics & Gynecology; ADMIT Obstetrics & Gynecology; ATTEND Obstetrics & Gynecology
PROC: 10D00Z1 Extraction of Products of Conception, Low, Open Approach (ICD-10-PCS; principal; 2023-07-27 22:00)
DX: O42.013 Preterm premature rupture of membranes, onset of labor within 24 hours of rupture, third trimester (principal); O60.14X0 Preterm labor third trimester with preterm delivery third trimester, not applicable or unspecified; O99.324 Drug use complicating childbirth; Z3A.36 36 weeks gestation of pregnancy; Z37.0 Single live birth; O69.1XX0 Labor and delivery complicated by cord around neck, with compression, not applicable or unspecified; O24.424 Gestational diabetes mellitus in childbirth, insulin controlled; O34.211 Maternal care for low transverse scar from previous cesarean delivery; O99.284 Endocrine, nutritional and metabolic diseases complicating childbirth; E03.9 Hypothyroidism, unspecified; F12.90 Cannabis use, unspecified, uncomplicated; Z87.891 Personal history of nicotine dependence
CPT/HCPCS: 01961; 36415; 76942; 80307; 85027; 86850; 86900; 86901; A9270; J0131; J0456; J0690; J1200; J1650; J1885; J2001; J2274; J2371; J2590; J2795; J3010; J7121

== ENCOUNTER 2024-10-09 15:42 | Emergency (ER) | payer OTHER ==
[~2024-10-09] VITALS: Ht 152.4 cm; Wt 59.0 kg
[2024-10-09 16:04] LABS: PH, VENOUS 7.312 (7.31-7.41)
[2024-10-09 16:06] LABS: BASOPHILS 0.2 % (0-2); EOSINOPHILS 0.1 % (0-6); HEMATOCRIT 42.7 % (35.0-50.0); HEMOGLOBIN 14.5 g/dL (12.0-18.0); LYMPHOCYTES 6.8 % (24-44); MCH 32.3 (27-36); MCHC 33.9 g/dl (30-36); MCV 95.4 fl (81-99); MONOCYTES 3.3 % (0-12); NEUTROPHILS 89.6 % (39-80); PLATELET COUNT 228 K/uL (140-440); RBC 4.48 M/ul (4.3-5.7); RDW 14.3 (10.5-15.0)
[2024-10-09] MEDS ORDERED: INSULIN AS100 UNIT/2 SQ (16:15)
[2024-10-09] MEDS ORDERED: OMNIPOD 51 EACH SQ (16:15)
[2024-10-09] MEDS ORDERED: Insulin Regular, Human 100 UNIT/ML ML SUB-Q ONE ×2 (16:15→17:45)
[2024-10-09 16:22] LABS: ALBUMIN 4.8 g/dL (3.4-5.0); ALBUMIN/GLOBULIN RATIO 1.55 (1.1-2.4); ANION GAP 18.5 (7-21); BILIRUBIN, TOTAL 1.7 ng/dL (0.2-1.0); BUN/CREATININE RATIO 13.47 (6.0-28.6); CALCIUM 9.5 mg/dL (8.5-10.1); CREATININE, SERUM 1.41 mg/dL (0.55-1.02); POTASSIUM 4.5 mmol/L (3.5-5.1); PROTEIN, TOTAL 7.9 g/dL (6.4-8.2)
[2024-10-09 16:31] LABS: BILIRUBIN, URINE NEGATIVE (negative); BLOOD/HGB, URINE LARGE (Negative); KETONE, URINE SMALL (Negative); LEUK ESTERASE, URINE NEGATIVE (negative); NITRITE, URINE NEGATIVE (negative); PH, URINE 5.5 (5-7)
[2024-10-09 16:37] LABS: BACTERIA, URINE 2+ /hpf (negative); CRYSTALS, URINE NONE SEEN (0-1+); EPITHELIAL CELLS, URINE SQUAMOUS 3+ /lpf (0-1+)
[2024-10-09 16:38] LABS: CASTS, URINE NONE SEEN \\lpf; COLLECTION TYPE, URINE CLEAN CATCH; REFLEX CULTURE, URINE No (No)
[2024-10-09 16:46] LABS: AMPHETAMINES, URINE NEGATIVE (NEGATIVE); BARBITURATES, URINE NEGATIVE (NEGATIVE); BENZODIAZEPINE, URINE NEGATIVE (NEGATIVE); BUPRENORPHINE, URINE NEGATIVE (NEGATIVE); CANNABINOID, URINE POSITIVE (NEGATIVE); COCAINE, URINE NEGATIVE (NEGATIVE); ECSTASY, URINE NEGATIVE (NEGATIVE); FENTANYL, URINE NEGATIVE (NEGATIVE); METHADONE, URINE NEGATIVE (NEGATIVE); OPIATES, URINE NEGATIVE (NEGATIVE); OXYCODONE, URINE NEGATIVE (NEGATIVE); PHENCYCLIDINE, URINE NEGATIVE (NEGATIVE)
[2024-10-09] MEDS ORDERED: PROCHLORPERAZINE EDISYLATE 10 MG/2 ML VIAL IV ONE (17:00)
[2024-10-09] MEDS ORDERED: SODIUM CHLORIDE 0.9% 1,000 ML IV PRN (18:00)
[2024-10-09 19:20] VITALS: BP 95/58
== END 2024-10-09 19:20 | disposition home or self-care (01) ==
LOC: ED 15:42
PROVIDERS: Internal Medicine
DX: E10.65 Type 1 diabetes mellitus with hyperglycemia (principal); Z96.41 Presence of insulin pump (external) (internal); E05.90 Thyrotoxicosis, unspecified without thyrotoxic crisis or storm; Z88.8 Allergy status to other drugs, medicaments and biological substances; Z79.890 Hormone replacement therapy; Z79.4 Long term (current) use of insulin
CPT/HCPCS: 36415; 80053; 80307; 81001; 82010; 82803; 85025; 96361; 96374; 99284-25; J0780; J1815; J7030